=== PATIENT | male | born 1955 | race Caucasian/White ===

== ENCOUNTER 2021-02-02 14:06 | Emergency (ER) | payer OTHER ==
[2021-02-02] MEDS ORDERED: ONDANSETRON 4 MG/2 ML VIAL ONE (15:27)
[2021-02-02] MEDS ORDERED: HYDROMORPHONE HCL 1 MG/ML INJ ONE (15:27)
[2021-02-02] MEDS ORDERED: ACYCLOVIR INJ 800 MG in NA CHLORIDE 0.9% 100 ML IVPB ONE (16:00)
--- NOTE | 2021-02-02 16:19 | ER ---
Nurse's Notes [facility] Name: Mark Dunham Age: 65 yrs Sex: Male : 1955 Arrival Date: 02/02/2021 Time: 14:08 Bed 17 Private MD: Diagnosis: Rash and other nonspecific skin eruption-H. Zoster viral infection. Shingles Presentation: 02/02 14:09 Chief complaint: Patient states: Diagnosed with shingles yesterday by his PCP. Started ll1 taking Valtrex yesterday. Las night his L eye started to get red and swollen. Was told to come to ER for eval. and possible antibiotics. Coronavirus screen: Vaccine status: Patient reports receiving the 1st dose of the Covid vaccine. Client denies travel out of the [place] in the last 14 days. At this time, the client does not indicate any symptoms associated with coronavirus-19. Ebola Screen: Patient denies travel to an Ebola-affected area in the 21 days before illness onset. Initial Sepsis Screen: Does the patient meet any 2 criteria? No. Patient's initial sepsis screen is negative. Does the patient have a suspected source of infection? Yes: Skin breakdown/wound. Risk Assessment: Do you want to hurt yourself or someone else? Patient reports no desire to harm self or others. Onset of symptoms was January 26, 2021. 14:09 Method Of Arrival: Ambulatory ll1 14:09 Acuity: GEORGE 3 ll1 Triage Assessment: 15:16 General: Appears in no apparent distress. Behavior is calm, cooperative. jw6 Historical: - Allergies: 14:15 No Known Allergies; ll1 - PMHx: 14:15 borderline HTN; ll1 - PSHx: 14:15 back SX, hernia repair; ll1 - Immunization history:: Client reports receiving the Kemar \T\ Kemar single-dose vaccine. - Social history:: Smoking status: Patient denies any tobacco usage or history of. Patient/guardian denies using alcohol, street drugs, The patient lives with family. - Family history:: not pertinent. Screenin:15 Abuse screen: Denies threats or abuse. Denies injuries from another. Nutritional jw6 screening: No deficits noted. Tuberculosis screening: No symptoms or risk factors identified. Fall Risk IV access (20 points). Assessment: 15:15 General: Appears in no apparent distress. Behavior is calm, cooperative. Pain: jw6 Complains of pain in left eye. Neuro: No deficits noted. Cardiovascular: No deficits noted. Respiratory: No deficits noted. GI: No deficits noted. : No deficits noted. EENT: Eyes are tearing on outer aspect of conjuctiva of left eye, iris of left eye and inner aspect of conjunctiva of left eye. Derm: No deficits noted. Musculoskeletal: No deficits noted. Vital Signs: 14:09 BP 152 / 77; Pulse 68; Resp 18; Temp 98.5; Pulse Ox 98% ; Weight 79.38 kg; Height 5 ft. ll1 8 in. (172.72 cm); Pain 8/10; 14:09 Body Mass Index 26.61 (79.38 kg, 172.72 cm) ll1 ED Course: 14:08 Patient arrived in ED. as 14:15 Triage completed. ll1 14:16 Arm band placed on Patient placed in an exam room, on a stretcher. 1 14:22 Kelin Moyer MD is Attending Physician. ma2 14:58 Allegra Aparicio is Primary Nurse. jw6 15:15 Patient has correct armband on for positive identification. Bed in low position. Call jw6 light in reach. Side rails up X 1. 15:15 No provider procedures requiring assistance completed. Inserted saline lock: 20 gauge jw6 in right antecubital area, using aseptic technique. 16:29 IV discontinued, intact, bleeding controlled, No redness/swelling at site. Pressure jw6 dressing applied. Administered Medications: 15:14 Drug: Zofran (Ondansetron) 4 mg Route: IVP; Site: right antecubital; jw6 15:15 Follow up: Response: No adverse reaction jw6 15:15 Drug: Dilaudid (HYDROmorphone) 1 mg Route: IVP; Site: right antecubital; jw6 15:15 Follow up: Response: No adverse reaction jw6 15:55 Drug: Acyclovir 10 mg/kg Route: IVPB; Site: right antecubital; jw6 15:55 Follow up: Response: No adverse reaction; IV Intake: 100ml jw6 Intake: 15:55 IV: 100ml; Total: 100ml. jw6 Outcome: 16:18 Discharge ordered by . ma2 16:29 Discharged to home ambulatory. jw6 16:29 Condition: good 16:29 Discharge instructions given to patient, Instructed on discharge instructions, follow up and referral plans. 16:49 Patient left the ED. jw6 Signatures: Patricia Christie Mohammad, MD MD ma2 Cassy Sierra RN RN ll1 Allegra Aparicio jw6
--- NOTE | 2021-02-02 16:19 | EDPHYS ---
Physician Documentation [facility] Name: Mark Dunham Age: 65 yrs Sex: Male : 1955 Arrival Date: 02/02/2021 Time: 14:08 Bed 17 Private MD: ED Physician Kelin Moyer HPI: 02/02 14:49 This 65 yrs old Male presents to ER via Ambulatory with complaints of Eye ma2 Swelling - shingles. 14:49 Onset: The symptoms/episode began/occurred gradually, 1 day(s) ago. Duration: the ma2 symptoms 1 week. Associated signs and symptoms: Pertinent negatives: chills, fever. Patient wears glasses. Severity of symptoms: At their worst the symptoms were moderate in the emergency department the symptoms are unchanged. The patient has not experienced similar symptoms in the past. sent here by pcp for iv acyclovor 1 dose, he is already on po antiviral and gabapentin, he saw eye doctor yesterday and had an eye exam. he does not have eye redness or swelling, he does have the rash around the eye and on V1 distribution excluding the eye . Historical: - Allergies: 14:15 No Known Allergies; ll1 - PMHx: 14:15 borderline HTN; ll1 - PSHx: 14:15 back SX, hernia repair; ll1 - Immunization history:: Client reports receiving the Kemar \T\ Kemar single-dose vaccine. - Social history:: Smoking status: Patient denies any tobacco usage or history of. Patient/guardian denies using alcohol, street drugs, The patient lives with family. - Family history:: not pertinent. ROS: 14:49 Constitutional: Negative for fever, chills, and weight loss. ma2 14:49 All other systems are negative. Exam: 14:49 Visual Acuity: Visual acuity is within normal limits. ma2 14:49 Constitutional: This is a well developed, well nourished patient who is awake, alert, and in no acute distress. Head/Face: shingle rash on left V1 trigeminal distrubtion excluding the eye Normocephalic, atraumatic. Eyes: Pupils equal round and reactive to light, extra-ocular motions intact. Lids and lashes normal. Conjunctiva and sclera are non-icteric and not injected. Cornea within normal limits. Periorbital areas with no swelling, redness, or edema. ENT: Nares patent. No nasal discharge, no septal abnormalities noted. Tympanic membranes are normal and external auditory canals are clear. Oropharynx with no redness, swelling, or masses, exudates, or evidence of obstruction, uvula midline. Mucous membranes moist. Neck: Trachea midline, no thyromegaly or masses palpated, and no cervical lymphadenopathy. Supple, full range of motion without nuchal rigidity, or vertebral point tenderness. No Meningismus. Chest/axilla: Normal chest wall appearance and motion. Nontender with no deformity. No lesions are appreciated. Cardiovascular: Regular rate and rhythm with a normal S1 and S2. No gallops, murmurs, or rubs. Normal PMI, no JVD. No pulse deficits. Respiratory: Lungs have equal breath sounds bilaterally, clear to auscultation and percussion. No rales, rhonchi or wheezes noted. No increased work of breathing, no retractions or nasal flaring. Abdomen/GI: Soft, non-tender, with normal bowel sounds. No distension or tympany. No guarding or rebound. No evidence of tenderness throughout. Skin: Warm, dry with normal turgor. Normal color with no rashes, no lesions, and no evidence of cellulitis. MS/ Extremity: Pulses equal, no cyanosis. Neurovascular intact. Full, normal range of motion. Neuro: Awake and alert, GCS 15, oriented to person, place, time, and situation. Cranial nerves II-XII grossly intact. Motor strength 5/5 in all extremities. Sensory grossly intact. Cerebellar exam normal. Normal gait. Vital Signs: 14:09 BP 152 / 77; Pulse 68; Resp 18; Temp 98.5; Pulse Ox 98% ; Weight 79.38 kg; Height 5 ft. ll1 8 in. (172.72 cm); Pain 8/10; 14:09 Body Mass Index 26.61 (79.38 kg, 172.72 cm) ll1 MDM: 14:23 Patient medically screened. ma2 14:49 Differential diagnosis: rash, shingle, no corneal ulcer no eye symptoms or swelling. ma2 16:16 Data reviewed: vital signs, nurses notes. Counseling: I had a detailed discussion with ma2 the patient and/or guardian regarding: the historical points, exam findings, and any diagnostic results supporting the discharge/admit diagnosis, the presence of at least one elevated blood pressure reading (>120/80) during this emergency department visit, the need for outpatient follow up. Response to treatment: the patient's symptoms have markedly improved after treatment. Administered Medications: 15:14 Drug: Zofran (Ondansetron) 4 mg Route: IVP; Site: right antecubital; jw6 15:15 Follow up: Response: No adverse reaction jw6 15:15 Drug: Dilaudid (HYDROmorphone) 1 mg Route: IVP; Site: right antecubital; jw6 15:15 Follow up: Response: No adverse reaction jw6 15:55 Drug: Acyclovir 10 mg/kg Route: IVPB; Site: right antecubital; jw6 15:55 Follow up: Response: No adverse reaction; IV Intake: 100ml jw6 Disposition Summary: 02/02/21 16:18 Discharge Ordered Location: Home ma2 Condition: Stable ma2 Diagnosis - Rash and other nonspecific skin eruption - H. Zoster viral infection. ma2 Shingles(02/02/21 16:19) Followup: ma2 - With: Private Physician - When: Tomorrow - Reason: Recheck today's complaints, Continuance of care Discharge Instructions: - Discharge Summary Sheet ma2 - Shingles, [id number] ma2 Forms: - Medication Reconciliation Form ma2 - Thank You Letter ma2 - Antibiotic Education ma2 - Prescription Opioid Use ma2 Signatures: Kelin Moyer MD MD ma2 Cassy Sierra RN RN 1 Allegra Aparicio jw6 Corrections: (The following items were deleted from the chart) 16:19 16:18 Rash and other nonspecific skin eruption - H. Zoster viral infection ma2 ma2
[2021-02-02 16:54] VITALS: BP 152/77; TEMP 98.5; O2SAT 98
== END 2021-02-02 16:49 | disposition home or self-care (01) ==
LOC: ER 14:06
DX: B02.9 Zoster without complications (principal)
CPT/HCPCS: 96375; 96374; 99283; J1170; J0133; J2405